=== PATIENT | female | born 1945 | race American Indian/Alaskan Native ===

== ENCOUNTER 2020-02-04 06:18 | Day surgery (SDC) | payer MEDICARE ==
[2020-02-04] MEDS ORDERED: SODIUM CHLORIDE 0.9% 500 ML 500 ML IV SCH (07:00)
[2020-02-04 07:03] LABS: Basophils % (Auto) 0.3 % (0.0-1.8); Eosinophils # (Auto) 0.1 K/mm3 (0.0-0.4); Eosinophils % (Auto) 1.3 % (0.0-4.3); Hematocrit 38.3 % (30.3-42.9); Hemoglobin 12.9 gm/dl (10.1-14.3); Lymphocytes # (Auto) 1.6 K/mm3 (1.2-5.4); Lymphocytes % (Auto) 20.7 % (13.4-35.0); Mean Corpuscular HGB Conc 34 % (30-34); Mean Corpuscular Volume 86 fl (79-97); Monocytes # (Auto) 0.6 K/mm3 (0.0-0.8); Monocytes % (Auto) 7.4 % (0.0-7.3); Platelet Count 292 K/mm3 (140-440); Red Blood Count 4.46 M/mm3 (3.65-5.03); Red Cell Distribution Width 14.6 % (13.2-15.2)
[2020-02-04 07:13] LABS: INR 0.91 (0.87-1.13)
[2020-02-04 07:15] LABS: Calcium 9.4 mg/dL (8.4-10.2)
[2020-02-04] MEDS ORDERED: NITROGLYCERIN SYRINGE 0 ML ONE (08:07)
[2020-02-04] MEDS ORDERED: HEPARIN/NS 5000 UNIT/500ML 1,000 ML IR ONE (08:07)
[2020-02-04] MEDS ORDERED: fentaNYL 100 MCG/2 ML INJ ONE (08:08)
[2020-02-04] MEDS ORDERED: MIDAZOLAM 2 MG/2 ML INJ ONE (08:08)
[2020-02-04] MEDS: LIDOCAINE (2%) 20 MG/1 ML VIAL 20 ML MDV INFILTRATI ONE ×2 (08:37→08:45)
[2020-02-04] MEDS: VERAPAMIL 5 MG/2 ML INJ ONE ×2 (08:37→08:46)
[2020-02-04] MEDS: HEPARIN 10,000 UNITS/10 ML VIAL ONE ×2 (08:38→08:45)
[2020-02-04] MEDS ORDERED: traMADol 50 MG TAB PO PRN (09:49)
[2020-02-04] MEDS ORDERED: HYDROcodone/ACETAMINOPHEN 5-325 MG TAB PO PRN (09:49)
--- NOTE | 2020-02-04 09:49 | Short Stay Summary ---
Short Stay Documentation Date of service: 02/04/20 - History H&P: obtained from office - Allergies and Medications Current Medications: Allergies No Known Allergies Allergy (Unverified 02/04/20 06:45) Home Medications Medication Instructions Recorded Confirmed Last Taken Type Albuterol Sulfate [Proair 2 puff IH BID PRN 02/04/20 02/04/20 Unknown History Respiclick] Aspirin [Adult Aspirin] 81 mg PO DAILY 02/04/20 02/04/20 02/04/20 04:00 History Fluticasone [Flonase] 2 spray IH DAILY 02/04/20 02/04/20 02/03/20 History Latanoprost 0.005% [Xalatan 0.005%] 1 drop OP QPM 02/04/20 02/04/20 02/03/20 History Losartan [Cozaar] 25 mg PO QDAY 02/04/20 02/04/20 02/03/20 History Sertraline [Zoloft] 25 mg PO QDAY 02/04/20 02/04/20 02/03/20 History amLODIPine [Norvasc] 10 mg PO DAILY 02/04/20 02/04/20 02/03/20 History glipiZIDE [Glucotrol] 10 mg PO QDAY 02/04/20 02/04/20 02/03/20 History Active Medications Sodium Chloride (Nacl 0.9% 500 Ml) 500 mls @ 50 mls/hr IV DIRECT BRYAN Stop: 02/04/20 16:59 Last Admin: 02/04/20 07:44 Dose: 50 mls/hr Documented by: Short Stay Discharge Plan Follow up with: ANAIS PEACOCK MD [Primary Care Provider] - 7 Days
--- NOTE | 2020-02-04 09:52 | Cardiac Catherization Report ---
CARDIAC CATHETERIZATION AND CORONARY ANGIOGRAPHY REPORT INDICATION FOR PROCEDURE: The patient is a 74-year-old -[place] female with history of diabetes mellitus, hypertension and hyperlipidemia, had a preoperative abnormal pharmacological stress testing with suggestion of anteroseptal ischemia. Hence, scheduled for cardiac catheterization for definitive diagnosis and treatment. The patient is aware of the procedure, potential complications and alternatives of therapy available. DESCRIPTION OF PROCEDURE: The patient was brought to the catheterization laboratory in a fasting condition. The patient was evaluated for moderate sedation and was felt to be appropriate candidate for moderate sedation. Received IV Versed and fentanyl. Subsequently, right wrist area was prepared in a standard fashion. Local anesthesia was given. Right radial artery puncture was made using 21-gauge arterial puncture needle. Subsequently, 5-E[place]ian sheath was introduced. The patient received 5 mg of intra-arterial verapamil and 3000 units of intravenous heparin. Subsequently, 5-E[place]ian multipurpose catheter was used to obtain the angiograms of the left ventricle done in JONES projection followed by angiograms of the right coronary artery in multiple views. This catheter was exchanged with 5-E[place]ian TIG catheter to obtain the angiograms of the left coronary artery. At the end of the procedure, catheter and sheath were removed. No untoward complications were noted. Hemostasis was obtained by application of radial band. During the procedure, the patient was monitored with a pulse oximetry, EKG monitoring and hemodynamic monitoring. The patient did not develop any side effects from moderate sedation. At the end of the procedure, the patient was conscious, oriented x 3, breathing normally and with no focal deficits. The patient's sedation started at 8:28 a.m. and ended at 8:58 a.m. The patient was transferred to the room in stable condition. Following findings were noted. HEMODYNAMICS: 1. Opening aortic pressure 127/63, left ventricular pressure 129/17. No gradient across the aortic valve. Estimated ejection fraction 65%. 2. Left ventriculogram done in JONES projection only with limited amount of dye. Could not evaluate mitral regurgitation. However, left ventricular end-diastolic and systolic volumes are normal. 3. Right coronary artery dominant vessel arises normally from right coronary cusp, angiographically smooth and normal. Similarly, left coronary artery arises normally from left coronary cusp. Left main, LAD, which curves around the apex and its branches and circumflex artery and its branch are angiographically smooth and normal. FINAL IMPRESSION: 1. Normal sized left ventricle with normal contractility. End-diastolic pressure upper limits of normal. 2. Normal coronary anatomy. 3. Procedure was uncomplicated. No side effects from moderate sedation noted. Findings were explained to the patient in detail. JOB# [id number]
[2020-02-04 11:36] VITALS: BP 107/54
== END 2020-02-04 12:00 | disposition home or self-care (01) ==
LOC: CATHLABREC 06:18
PROVIDERS: ATTEND Internal Medicine
DX: R94.39 Abnormal result of other cardiovascular function study (principal); E11.9 Type 2 diabetes mellitus without complications; E78.5 Hyperlipidemia, unspecified; I10 Essential (primary) hypertension; K21.9 Gastro-esophageal reflux disease without esophagitis; M19.90 Unspecified osteoarthritis, unspecified site; F41.9 Anxiety disorder, unspecified; Z87.891 Personal history of nicotine dependence; Z79.82 Long term (current) use of aspirin; Z79.899 Other long term (current) drug therapy; Z98.890 Other specified postprocedural states
CPT/HCPCS: 36415; 80048; 85025; 85610; 85730; 93005; 93458; 99156; 99157; C1887; C1894; J1644; J2250; J3010; J7040; Q9967